=== PATIENT | female | born 1960 | race African-American/Black ===

== ENCOUNTER 2021-10-07 13:06 | Emergency (ER) | payer BC ==
[~2021-10-07] VITALS: Ht 167.6 cm; Wt 110.0 kg
[2021-10-07] MEDS ORDERED: DIPH25CA83 MT (13:38)
[2021-10-07] MEDS ORDERED: P20 MT (13:38)
[2021-10-07] MEDS ORDERED: EPIN0.3P3 IM (13:38)
[2021-10-07] MEDS ORDERED: METHYLPREDNISOLONE SOD SUCC 125 MG/2 ML VIAL IV ONE (13:45)
[2021-10-07] MEDS ORDERED: DIPHENHYDRAMINE 50MG/ML VIAL IV ONE (13:45)
[2021-10-07] MEDS ORDERED: SODIUM CHLORIDE 0.9% 1,000 ML IV ONE (13:45)
[2021-10-07 14:10] LABS: BASOPHILS % 0.6 % (0.0-2.0); EOSINOPHILS % 2.5 % (0.0-5.0); HEMATOCRIT. 38.4 % (36.0-48.0); HEMOGLOBIN. 12.3 g/dL (12.0-16.0); LYMPHOCYTES % 35.9 % (20.0-50.0); MEAN CORPUSCULAR HEMOGLOBIN 26.2 pg (28.0-32.0); MEAN CORPUSCULAR VOLUME 81.9 fL (81.0-99.0); MEAN PLATELET VOLUME 7.1 fl (7.4-10.4); MONOCYTES % 9.6 % (2.0-8.0); NEUTROPHILS % 51.4 % (40.0-76.0); PLATELET 281 x1000/uL (130-400); RED BLOOD CELL COUNT 4.68 mill/uL (4.2-5.4); RED CELL DISTRIBUTION WIDTH 15.8 % (11.6-14.6)
[2021-10-07 14:20] LABS: CHLORIDE 111 mEq/L (98-107)
[2021-10-07 14:30] VITALS: BP 134/77
== END 2021-10-07 16:30 | disposition home or self-care (01) ==
LOC: ER 13:06
DX: T78.40XA Allergy, unspecified, initial encounter (principal); I48.91 Unspecified atrial fibrillation; R56.9 Unspecified convulsions; I10 Essential (primary) hypertension; X58.XXXA Exposure to other specified factors, initial encounter; Z88.0 Allergy status to penicillin; Z88.8 Allergy status to other drugs, medicaments and biological substances; Z91.013 Allergy to seafood; Z91.041 Radiographic dye allergy status
CPT/HCPCS: 36415; 80048; 85025; 96361; 96374; 96375; 99284; J1200; J2930; J7030